=== PATIENT | female | born 1990 | race Caucasian/White ===

== ENCOUNTER 2021-02-04 01:00 | Inpatient (IN) | payer OTHER ==
[2021-02-04] VITALS (17 sets, daily range): BP systolic 101–137; BP diastolic 54–97
[~2021-02-04] VITALS: Ht 157.5 cm; Wt 60.8 kg
[2021-02-04] MEDS ORDERED: NS 1000ML 1,000 ML ONE ×2 (01:27→04:47)
[2021-02-04] MEDS ORDERED: ZOFRAN ONE ×2 (01:27→09:48)
[2021-02-04] MEDS ORDERED: SUBLIMAZE ONE ×2 (01:28→09:49)
[2021-02-04] MEDS ORDERED: SUBLIMAZE IV ONE (01:30)
[2021-02-04] MEDS ORDERED: NS 1000ML 1,000 ML IV ONE (01:30)
[2021-02-04] MEDS ORDERED: ZOFRAN IV PRN ×2 (01:30→11:30)
[2021-02-04 01:34] LABS: BASOPHIL % 0.1 % (0.0-0.2); EOSINOPHIL # 0.2 10^3/uL (0.0-0.2); EOSINOPHIL % 1.7 % (0.0-5.0); LYMPHOCYTES # 3.09 10^3/uL1 (1.0-4.8); LYMPHOCYTES % 25.1 % (24.0-44.0); MEAN CORP HGB 29.5 pg (26-34); MONOCYTES # 0.6 10^3/uL (0.3-0.8); MONOCYTES % 4.5 % (5.0-12.0); NEUTROPHIL # 8.4 10^3/uL (1.8-7.7); NEUTROPHILS % 68.4 % (41.0-85.0); PLATELET COUNT 168 10^3/uL (150-400); RED CELL DISTRIBUTION WIDTH 13.1 % (11.5-14.5)
--- NOTE | 2021-02-04 01:35 | ER.PDOC ---
General Chief Complaint: Requesting Medical Care Stated Complaint: ABD PAIN Time seen by MD: 01:20 Source: patient, family Exam Limitations: no limitations History of Present Illness Initial Comments This 31-year-old female comes to the emergency department complaining of gradual onset of pain pointing to the epigastrium, left upper quadrant, and left lateral rectus area with associated nausea but no vomiting. She denies any constipation or diarrhea. Bowel movements have been normal with no melena or hematochezia. She states that she has had previous peptic ulcer disease but does not take any proton pump inhibitor, antacid, or other medication for ulcer. She does not have any specific food sensitivity or fatty food intolerance. She has never had gallbladder problems. She denies irritable bowel symptoms of chronic diarrhea or constipation. No fever. No true flank pain and no dysuria, urgency or hematuria. She started her menses today using a pad. She denies likelihood of . She has 3 children. Allergies: Coded Allergies: No Known Allergies (Unverified , 11/28/13) Vital Signs First Vital Signs Date Time Temp Pulse Resp B/P (MAP) Pulse Ox O2 Delivery O2 Flow Rate FiO2 02/04/21 01:22 98.2 80 18 02/04/21 01:22 128/97 (107) 100 Room Air Last Vital Signs Date Time Temp Pulse Resp B/P (MAP) Pulse Ox O2 Delivery O2 Flow Rate FiO2 02/04/21 02:08 73 18 111/63 (79) 98 Room Air 02/04/21 01:22 98.2 Past Medical History Medical History: GERD, peptic ulcer disease Surgical History: other (Patient had several lymph nodes excised around her neck but denies lymphoma or other malignancy. She does not know the etiology of the lymphadenopathy.) Family History Significant Family History: no pertinent family hx Social History Smoking: cigarettes, less than 1 pack/day Alcohol Use: none Drug Use: none Constitutional: see HPI; denies chills, denies fever, denies malaise EENTM: no symptoms reported Respiratory: no symptoms reported Cardiovascular: no symptoms reported Gastrointestinal: see HPI Genitourinary: see HPI Musculoskeletal: no symptoms reported Skin: no symptoms reported Psychiatric/Neurological: no symptoms reported Endocrine: no symptoms reported Hematologic/Lymphatic: denies anemia, denies blood clots, denies easy bruising; swollen glands Physical Exam General Appearance: WD/WN, Mild Distress HEENT: PERRL/EOMI, Normal ENT Inspection, TMs Normal, Pharynx Normal Neck: Non-Tender, Full Range of Motion, Supple, Normal Inspection Respiratory: chest non-tender, lungs clear, normal breath sounds, no respiratory distress, no accessory muscle use Cardiovascular: Normal Peripheral Pulses, Regular Rate, Rhythm, No Edema, No JVD, No Murmur Gastrointestinal: Normal Bowel Sounds, No Organomegaly, Other (Patient has tenderness to palpation in all 4 quadrants and the periumbilical area with mild guarding but no rigidity. Bowel sounds are normoactive without high-pitched sounds. No ascites, no distention, no rebound tenderness and no liver or spleen enlargement. Patient has a borderline positive Newman. Flanks are nontender to percussion bilaterally. Abdomen and back were examined for rash and there is none. 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, No Motor/Sensory Deficits, Alert, Normal Mood/Affect, Oriented x 3 Skin: Normal Color, Warm/Dry, Other (No jaundice, no scleral icterus) Lymphatic: No Adenopathy Results/Orders Results/Orders Orders - LUZ DUMAS MD Cbc With Auto Diff (02/04/21 01:23) Comprehensive Metabolic Panel (02/04/21 01:23) Amylase (02/04/21 01:23) Lipase (02/04/21 01:23) Helicobacter Pylori (02/04/21:23) Ct Abd/Pel With Iv Contrast (02/04/21:23) Hcg Qualitative Serum (02/04/21 01:23) Urinalysis (02/04/21 01:23) Saline Lock (02/04/21:23) 0.9 % Sodium Chloride (Ns 1000ml) (02/04/21 01:30) Ondansetron Hcl/Pf (Zofran) (02/04/21 01:30) Fentanyl Citrate/Pf (Sublimaze) (02/04/21 01:30) 0.9 % Sodium Chloride (Ns 1000ml) (02/04/21 01:27) Ondansetron Hcl/Pf (Zofran) (02/04/21 01:27) Fentanyl Citrate/Pf (Sublimaze) (02/04/21 01:28) Urine Culture (02/04/21 01:53) Levofloxacin 750mg/D5w 100ml (Levaquin) (02/04/21 02:38) Blood Culture (02/04/21 02:37) Levofloxacin 750mg/D5w 100ml (Levaquin) (02/04/21 03:00) Metronidazole/Sodium Chloride (Flagyl 50 (02/04/21 03:00) Npo Now (02/04/21 02:45) Admit Orders (02/04/21 02:45) Vital Signs Date Time Temp Pulse Resp B/P (MAP) Pulse Ox O2 Delivery O2 Flow Rate FiO2 02/04/21 02:08 73 18 111/63 (79) 98 Room Air 02/04/21 01:45 75 18 116/54 (74) 97 Room Air 02/04/21 01:22 98.2 80 18 100 02/04/21 01:22 98.2 80 18 128/97 (107) 100 Room Air 02/04/21 01:22 98.2 80 18 Administered Medications Medications (Trade) Dose Ordered Sig/Maryam Route PRN Reason Start Time Stop Time Status Last Admin Dose Admin Fentanyl Citrate (Sublimaze) 50 mcg STAT ONCE IV 02/04/21 01:30 02/04/21 01:31 DC 02/04/21 01:40 50 MCG Levofloxacin/ Dextrose 150 ml @ 100 mls/hr Q24HRS ONCE IV 02/04/21 03:00 02/04/21 04:29 02/04/21 02:53 100 MLS/HR Ondansetron HCl (Zofran) 4 mg STAT PRN IV NAUSEA / VOMITING 02/04/21 01:30 03/06/21 01:29 02/04/21 01:40 4 MG Sodium Chloride 1,000 ml @ 1,200 mls/hr Q50M ONCE IV 02/04/21 01:30 02/04/21 02:19 DC 02/04/21 01:40 1,200 MLS/HR Laboratory Tests Test 02/04/21 01:25 02/04/21 01:53 White Blood Count 12.3 10^3/uL (4.5-11.0) H Red Blood Count 5.08 10^6/uL (4.00-5.20) Hemoglobin 15.0 g/dL (12.0-15.0) Hematocrit 44.3 % (36.0-46.0) Mean Corpuscular Volume 87.2 fL (78-100) Mean Corpuscular Hemoglobin 29.5 pg (26-34) Mean Corpuscular Hemoglobin Concent 33.9 g/dL (33-36.5) Red Cell Distribution Width 13.1 % (11.5-14.5) Platelet Count 168 10^3/uL (150-400) Mean Platelet Volume 10.8 fL (7.8-11.0) Neutrophils (%) (Auto) 68.4 % (41.0-85.0) Lymphocytes (%) (Auto) 25.1 % (24.0-44.0) Monocytes (%) (Auto) 4.5 % (5.0-12.0) L Neutrophils # (Auto) 8.4 10^3/uL (1.8-7.7) H Lymphocytes # (Auto) 3.09 10^3/uL1 (1.0-4.8) Monocytes # (Auto) 0.6 10^3/uL (0.3-0.8) Absolute Immature Granulocyte (auto 0.03 10^3 u/L (0-2) Absolute Eosinophils (auto) 0.2 10^3/uL (0.0-0.2) Immature Granulocytes % 0.20 % (0.00-0.50) Eosinophils % 1.7 % (0.0-5.0) Basophils % 0.1 % (0.0-0.2) Basophils # 0.0 10^3/uL (0.0-0.1) Sodium Level 139 mmol/L (132-145) Potassium Level 3.7 mmol/L (3.6-5.2) Chloride Level 104.0 mmol/L (96-109) Carbon Dioxide Level 24.5 mmol/L (20.0-32) Anion Gap 14.2 Blood Urea Nitrogen 14 mg/dL (7-18) Creatinine 0.67 mg/dL (0.59-1.40) Estimated GFR () 124.2 (>/=60) Est GFR (CKD-EPI)(Non-Afr [place]) 102.7 (>/=60) BUN/Creatinine Ratio 20.0 Glucose Level 96 mg/dL (70-110) Calcium Level 8.6 mg/dL (8.4-10.5) Total Bilirubin 0.3 mg/dL (0.2-1.0) Aspartate Amino Transferase (AST) 11 U/L (0-35) Alanine Aminotransferase (ALT) 16 U/L (12-78) Alkaline Phosphatase 41 U/L (50-136) L Total Protein 6.7 g/dL (6.4-8.2) Albumin 3.4 g/dL (3.4-5.0) Globulin 3.3 Albumin/Globulin Ratio 1.030 Amylase Level 49 U/L (25-115) Lipase 75 U/L (114-286) L Serum HCG, Qualitative NEGATIVE (NEGATIVE) Helicobacter pylori Screen NEGATIVE (NEGATIVE) Urine Collection Type RANDOM Urine Color YELLOW Urine Appearance CLEAR Urine Bilirubin NEGATIVE (NEGATIVE) Urine Ketones NEGATIVE (NEGATIVE) Urine Specific [place] 1.025 (1.005-1.030) Urine pH 6.0 (4.5-8.0) Urine Protein NEGATIVE (NEGATIVE) Urine Urobilinogen 0.2 E.U./dL (0.2) Urine Nitrate NEGATIVE (NEGATIVE) Urine Leukocyte Esterase NEGATIVE (NEGATIVE) Urine Glucose (Auto)(UA) NEGATIVE (NEGATIVE) Urine Blood LARGE (NEGATIVE) H Urine RBC 5-10 RBC/HPF (NONE SEEN) H Urine WBC 2-5 WBC/HPF (0-2) Urine Squamous Epithelial Cells FEW #/HPF (FEW) Urine Bacteria FEW (NONE SEEN) H Progress Progress CBC indicates white count elevated at 12,300. Urinalysis is contaminated with blood from menses. Patient is not and CT scan with contrast confirms acute appendicitis with wall thickening but no periappendiceal fluid or abscess. Patient also has a 2 mm renal calculus on the left without hydronephrosis. Electrolytes and liver functions are normal, renal function normal. ER DEPART Departure Time of Disposition: 02:50 Disposition: 09 ADMITTED INPATIENT Impression: Primary Impression: Acute appendicitis Condition: Improved Referrals: BRYSON GILMAN (PCP) PRIMARY CARE PROVIDER Duration or Time Spent with Pa: 25 minutes Problem Qualifiers Primary Impression: Acute appendicitis Acute appendicitis type: with localized peritonitis Appendicitis gangrene presence: without gangrene Appendicitis perforation presence: without perforation Appendicitis abscess presence: without abscess Qualified Codes: K35.30 - Acute appendicitis with localized peritonitis, without perforation or gangrene LUZ DUMAS MD Feb 04, 2021 01:35
[2021-02-04 01:48] LABS: CALCIUM 8.6 mg/dL (8.4-10.5); CARBON DIOXIDE 24.5 mmol/L (20.0-32)
--- NOTE | 2021-02-04 01:53 | NUR ---
UA: PT TO RESTROOM VIA WHEELCHAIR
--- NOTE | 2021-02-04 01:58 | NUR ---
RADIOLOGY: PT TO RADIOLOGY FOR CT
[2021-02-04 02:07] LABS: BILIRUBIN,URINE NEGATIVE (NEGATIVE); UA COLOR YELLOW; UROBILINOGEN,URINE 0.2 E.U./dL (0.2)
--- NOTE | 2021-02-04 02:25 | DIREP ---
PROCEDURE:CT ABD/PELVIS WITH CONTRAST TECHNIQUE:No oral contrast was given. Following the intravenous administration of contrast material, venous phase cuts were obtained through the abdomen and pelvis. The images were viewed at lung and soft tissue settings. Sagittal and coronal reconstructions are provided. COMPARISON:[facility], CT, CT ABD/PELVIS W/O, 12/23/2017, 09:52 AM. INDICATIONS:Diffuse abdominal pain worst in left lower quadrant, positive Newman sign, FINDINGS: LOWER CHEST:The lung bases are clear. LIVER:Normal. BILIARY:Normal. PANCREAS:Normal. SPLEEN:Normal. URINARY TRACT:A 2 mm calculus is demonstrated in the lower left intrarenal collecting system. No ureteral calculus or hydronephrosis is demonstrated. No bladder calculus is demonstrated. ADRENALS:Normal. AORTA/VASCULAR:Normal. RETROPERITONEUM:Normal. BOWEL/MESENTERY:The appendix is mildly dilated measuring 9 mm. Enhancement of the wall of the appendix is demonstrated as well suggesting acute appendicitis. No periappendiceal abscess is seen. There is no evidence of bowel obstruction. ABDOMINAL WALL:Normal. PELVIS:No abnormal mass is demonstrated. A small amount of free fluid is noted within the posterior cul de sac which may be physiologic. BONES:Normal. OTHER:Normal. CONCLUSION: 1. The findings are consistent with acute appendicitis without evidence of abscess. 2. A single left renal calculus is noted; no hydronephrosis is present. Dictated by: Ernie Johnson M.D. on 02/04/2021 at 02:19 AM
[2021-02-04] MEDS ORDERED: LEVAQUIN 150 ML IV ONE ×2 (02:38→03:00)
[2021-02-04] MEDS ORDERED: FLAGYL 500MG/ 100 ML NS 100 ML IV ONE ×2 (03:00→05:30)
--- NOTE | 2021-02-04 03:44 | NUR ---
TRANSFER TO [facility] ROOM 338. REPORT TO NEGRO RIVERA RN. PT CARE RELINQUISHED.
[2021-02-04] MEDS ORDERED: ATIVAN ONE ×2 (03:51→11:19)
[2021-02-04] MEDS ORDERED: ATIVAN IM PRN (04:00)
--- NOTE | 2021-02-04 05:45 | NUR ---
Initiated 1:1 observation due to patient triggering suicide risk on admission assessment.
--- NOTE | 2021-02-04 06:57 | NUR ---
Report to Martha Grimes RN.
--- NOTE | 2021-02-04 09:06 | NUR ---
STATUS SCD'S APPLIED BEV AND SURGICAL WIPE TO ABDOMEN, SPOUSE AT BEDSIDE TALKING WITH PT
--- NOTE | 2021-02-04 09:45 | NUR ---
OR TO OR VIA BED ACCOMPANIED BY Armando BRAR RN AND Rody ROSSI RN
[2021-02-04] MEDS ORDERED: SODIUM CHLORIDE IRR BOTTLE IR ONE (09:49)
[2021-02-04] MEDS ORDERED: DECADRON ONE (09:49)
[2021-02-04] MEDS ORDERED: DIPRIVAN IV ONE (09:49)
[2021-02-04] MEDS ORDERED: VERSED ONE (09:49)
[2021-02-04] MEDS ORDERED: TORADOL ONE (09:49)
[2021-02-04] MEDS ORDERED: SODIUM CHLORIDE IRR BAG IR ONE (09:49)
[2021-02-04] MEDS ORDERED: SENSORCAINE 0.5% VIAL ONE (09:50)
[2021-02-04] MEDS ORDERED: LIDOCAINE 2% VIAL ONE (09:50)
[2021-02-04] MEDS ORDERED: ANCEF ONE (09:50)
[2021-02-04] MEDS ORDERED: BRIDION IV ONE (09:54)
[2021-02-04] MEDS ORDERED: XYLOCAINE 1%-EPI 1:100,000 ONE (10:28)
[2021-02-04] MEDS ORDERED: SENSORCAINE-MPF 0.25% VIAL ONE (10:28)
--- NOTE | 2021-02-04 11:16 | PRM.OPH ---
Immediate Post Op Note Summary of Operation Date: Feb 04, 2021 Time: 11:08 Pre-Operative DX: Acute appendicitis Post-OP DX: Same Anesth.Used: General endotracheal and local Indications: Patient presented with right lower quadrant pain and nausea. CT scan showed a slightly enlarged appendix with an enhancing wall, indicating acute appendicitis. Physician's Summary: After physical exam was carried out and discussion was carried out with the patient and her and her mother, the procedure itself was discussed with them in detail. They were made aware of the risk, benefits, alternatives and complications associated with the procedure. They opted and consented to proceed with laparoscopic appendectomy, possible open, possible bowel resection, possible ostomy. Patient was brought into the operating room and placed on the operative table in the supine position. Adequate analgesia and anesthesia were obtained, and the patient was intubated without incident.A Whitley catheter was placed under sterile conditions with return of clear yellow urine prior to the balloon being inflated. The abdomen was shaved prepped and draped in the usual sterile fashion.A midline incision was drawn on the patient. A position was chosen in the right upper quadrant inferior to the costal margin, and approximately the midclavicular line.Dislocation was infiltrated with local anesthetic, and a small incision was made with an 11 blade.Utilized using a 5 mm scope and Optiview trocar, the trocar was placed into the abdomen without evidence of injury.CO2 insufflation was used to achieve a pneumoperitoneum. The scope was placed back in the abdomen, and it was examined. I did look at the lower abdomen in the midline near the umbilicus, for placement of the other trochars. In a similar fashion, the position just above the pubis in the midline was infiltrated and a trocar placed without injury. Just below the umbilicus, it was infiltrated, incision was made, and the larger 10 mm trocar was placed. There is no evidence of injury to the abdominal wall or intra-abdominal contents during placement of any of the trochars. Graspers were used to locate the colon in the right side, and the tinea were followed down inferiorly. The appendix was noted to be hanging off the cecum and the tinea. It was lifted without difficulty. It did appear slightly inflamed and thickened.[place] dissector was used to create a window between the mesoappendix and the appendix. BRO stapler,Utilizing a vascular staple line, was used to staple across the base of the appendix at the cecum. A second firing of the stapler was used across the mesoappendix. The appendix was then placed in an Endobag. The area of the right lower quadrant was irrigated and aspirated. Staple line was examined, and seem to be intact without evidence of bleed or leak. All trochars were examined, there is no evidence of injury or bleed. The 5 mm trocar near the pubis was removed. The larger trocar at the umbilicus was removed including the Endobag. The trocar in the right upper quadrant was then removed. Pressure was applied to the abdomen to relieve all pneumoperitoneum. All wounds were irrigated. S retractors in Noe's were used to lift up the fascia at the umbilical incision. 0 Vicryl on a UR 6 was used to close the fascia in a [id number] fashion. All wounds irrigated again. Interrupted 4-0 Monocryl was placed in the deep dermis in a buried interrupted fashion. Dermabond was then applied. When the Dermabond was dry, the abdomen was washed. Local anesthetic was infiltrated into the areas of the incision again. Patient appeared to tolerate the procedure well. All counts were correct at the end of the procedure. Whitley catheter was removed prior to the patient leaving the room. Assistants: Anesthesiologist/ELVIRA Monteiro Specimen(s) Removed: List Specimen: Appendix Estimated Blood Loss: EBL/ESTIMATED BLOOD LOSS: (MIL: 10 Complications: Complications: None Assessment & Plan: Assessment & Plan: Patient will be placed on the floor, and we will restart her usual medications.Diet as tolerated. She will be kept overnight until he can touch base with her providers at [facility], due to her suicidal conversations with the nursing staff.Once they have approved her release, she will be sent home with pain medications and follow-up with Dr. Roach. The patient and her family are aware that I am locum's, and they will be following up with Dr. Roach tomorrow and next week. DONITA REDDY MD Feb 04, 2021 11:16
[2021-02-04] MEDS ORDERED: ATIVAN IV ONE ×2 (11:20→11:30)
[2021-02-04] MEDS ORDERED: PHENERGAN IV PRN (11:30)
[2021-02-04] MEDS ORDERED: MORPHINE SULFATE IV PRN ×2 (11:30)
[2021-02-04] MEDS ORDERED: MORPHINE SULFATE ONE (11:46)
--- NOTE | 2021-02-04 12:25 | NUR ---
RECEIVED RECEIVED FROM PACU, AWAKE AND ALERT, PUNCTURES WOUNDS X3 TO ABDOMEN,CLEAN AND DRY, NO DRAINAGE NOTED, IV INFUSING WITHOUT DIFFICULTY, SCD'S BILATERALLY IN PLACE, CLEAR LIQUIDS LUNCH SERVED, EATING JELLO, TOLERATED, NO N/V NOTED
--- NOTE | 2021-02-04 12:40 | NUR ---
VOID UP TO BATHROOM WITH STAND BY ASSIST, VOIDED WITHOUT DIFFICULTY, BACK TO BED
--- NOTE | 2021-02-04 13:00 | NUR ---
CAMPER ASSEMBLER DELIA NOTIFIED OF PT'S S.I., 1:1 STATUS AND VOICED OF WANTING TO LEAVE AMA. DELIA WILL GET COURT PAPERS FOR PT.
[2021-02-04] MEDS ORDERED: METO-236 PO (13:03)
[2021-02-04] MEDS ORDERED: ALPR0.5T PO (13:03)
[2021-02-04] MEDS: NS 1000ML 1,000 ML IV SCH ×3 (13:21→22:00)
--- NOTE | 2021-02-04 13:29 | NUR ---
TPC TPC NOTIFIED OF EVALUATION AT THIS TIME
--- NOTE | 2021-02-04 13:30 | NUR ---
DR DR SAUCEDO IN O DISCUSS POC WITH PT AND FAMILY PRESENT, QUESTIONS ANSWERED, VOICED UNDERSTANDING
--- NOTE | 2021-02-04 13:39 | NUR ---
AMBULATION AMBULATING IN PLUNKETT, STEADY GAIT NOTED, BACK TO ROOM SITTING UP IN CHAIR
[2021-02-04] MEDS: NORCO 5MG PO PRN ×2 (14:01→20:10)
--- NOTE | 2021-02-04 14:06 | PCM.HP ---
History of Present Illness Reason for Visit: (1) Acute appendicitis ICD Code: K35.80 - Unspecified acute appendicitis SNOMED: 44936388 Hx of Present Illness Ms. Kowalski is a 31-year-old female who presents with acute abdominal pain which upon imaging proved to be consistent with acute appendicitis. The patient was subsequently taken for an uncomplicated laparoscopic appendectomy, which she is tolerated well. The patient voiced suicidal ideation both before and after surgery, though postoperatively she was adamant that she should return home. At the time of my exam, she has tolerated Jell-O and clear liquid diet and denies abdominal pain nausea or vomiting. She and family report that while her previous Effexor was ineffective at preventing panic attacks which are her chief psychiatric symptom, she is open to considering alternative therapies, and reports that as needed benzodiazepines had been helpful in the past. Past Medical History PMH-Psych: (1) Suicidal thoughts Status: Chronic ICD Code: R45.851 - Suicidal ideations SNOMED: 8459515 Hx Last Menstrual Period: current Travel History EBOLA RISK:Travel to/contact w: No Review of Systems Constitutional: Malaise; No: Fever, Chills, Sweats, Weakness Eyes: No: Vision change, Conjunctivae inflammation ENT: No: Ear discharge Respiratory: No: Dry, Shortness of breath, SOB with excertion Cardiovascular: No: Chest Pain, Palpitations, Orthopnea Gastrointestinal: Nausea, Abdominal Pain; No: Vomiting, Diarrhea, Constipation Genitourinary: No Dysuria, No Frequency, No Incontinence Musculoskeletal: No: neck pain, shoulder pain Skin: No: Lesions, Jaundice Neurological: No: Weakness, Numbness, Incoordination Allergies: Coded Allergies: No Known Allergies (Unverified , 11/28/13) Scheduled Alprazolam (Xanax), 1 TAB PO BID, (Reported) Metoprolol Succinate (Metoprolol Succinate), 1 TAB PO DAILY, (Reported) VTE VTE Risk Total Score: 0 VTE Risk Score VTE Risk: Score 0-1 = Low Risk (Aggressive mobilization; early ambulation; no VTE prophylaxis required) Score 2: Moderate Risk (Intermittent/Pneumatic Compression Device OR Lovenox/Heparin/Coumadin) Score 3-4: High Risk (Intermittent/Pneumatic Compression Device AND Lovenox/Heparin/Coumadin) Score > or =5: Highest Risk (Intermittent/Pneumatic Compression Device AND Lovenox/Heparin/Coumadin) Antico:Hep/LMWH/Coum/Xarelto: Yes VTE VTE Present on Admission: No Currently receiving anticoagul: No VTE Risk Total Score: 0 Exam Vital Signs Vital Signs Date Time Temp Pulse Resp B/P (MAP) Pulse Ox O2 Delivery O2 Flow Rate FiO2 02/04/21 12:10 71 16 119/56 (77) 98 Room Air 02/04/21 11:11 97.7 General Appearance: Alert, Oriented X3, Cooperative, No acute distress HEENT: Atraumatic, PERRLA, EOMI Respiratory: Clear to auscultation, Normal air movement Cardiovascular: Regular rate, Normal S1, Normal S2 Abdominal: Normal bowel sounds, Soft, Other (appropriate postop TTP ) Extremities: No clubbing, No cyanosis, No edema, Normal pulses Skin: No lesions, Rash Neuro: Normal gait, Normal speech, Strength at 5/5 X4 ext Psych/Mental Status: Mental status NL, Other (seems to have poor insight into the consequences of SI, acutely mood is euthymic) Assessment/Plan Assessment/Plan Problems: (1) Acute appendicitis Status: Acute Assessment & Plan: s/p appy, awaiting passage of flatus, will ADAT today to reg diet for dinner given tolerance of liquid diet ICD Code: K35.80 - Unspecified acute appendicitis SNOMED: 30206775 (2) Suicidal thoughts Status: Chronic Assessment & Plan: chronic panic attacks, recently c/o SI this admission, states Effexor was ineffective in the past, is amenable to inpatient psych placement, prefers [facility] ICD Code: R45.851 - Suicidal ideations SNOMED: 3818996 Patient History: FHx: SVT (supraventricular tachycardia) Problem Qualifiers (1) Acute appendicitis: Acute appendicitis type: with localized peritonitis Appendicitis gangrene presence: without gangrene Appendicitis perforation presence: without perforation Appendicitis abscess presence: without abscess Qualified Codes: K35.30 - Acute appendicitis with localized peritonitis, without perforation or gangrene MARVIN SAUCEDO MD Feb 04, 2021 14:06
--- NOTE | 2021-02-04 14:25 | NUR ---
[facility] SPOKE WITH HAI MARVIN AT [facility]. THEY WILL DO THE ASSESSMENT ONCE PT IS MEDICALLY CLEARED. HAI STATES TO NOTIFY [facility] HOTLINE WHEN THIS OCCURS. DR. SAUCEDO NOTIFIED.
--- NOTE | 2021-02-04 14:35 | NUR ---
IRWIN RODRIGES WITH SISTER.
[2021-02-04] MEDS: NICOTINE 14MG PATCH TD SCH (15:06)
--- NOTE | 2021-02-04 15:24 | NUR ---
AMBULATION AMBULATING IN PLUNKETT WITH SISTER, STEADY GAIT NOTED,
--- NOTE | 2021-02-04 15:54 | NUR ---
[employer] HEAD START ASSISTANT TEACHER RAMONA NOTIFIED FOR COURT PAPER SIGNATURES
--- NOTE | 2021-02-04 16:06 | NUR ---
[employer] P[employer] COURT DOCUMENTS COMPLETE AND PLACED IN CHART AT THIS TIME
--- NOTE | 2021-02-04 16:47 | NUR ---
supper HUSBANDS BROUGHT PT FOOD, SITTING UP EATING
--- NOTE | 2021-02-04 18:45 | NUR ---
Rec'd pt report. Pt ambulatory in hallway.
--- NOTE | 2021-02-04 18:56 | NUR ---
Pt sitting up in bed talking on smartphone. Awake, alert, oriented, face and eyes are red and puffy as say nurse reports she cried most of the afternoon when her family was at the bedside. Flat affect. Pt is in direct line of sight of this RN. POC was discussed with her and the offgoing RN.
--- NOTE | 2021-02-04 19:30 | NUR ---
VS and assessment completed, see Interventions. Awake, alert, oriented x 3. Skin pink, warm, dry. HRR regular without murmur. Lungs CTA A/P/lat bilat. Abdomen soft with hyperactive bowels sounds in RUQ, hypoactive all other quads. Incisions to RUQ, infraumbilicus, and suprapubic area are well-approximated with dermabond. Edges are pink, non-edematous, no bruising or drainage noted. Pt reports pain rated 7/10. 20 gauge IV to right AC is patent and infusing NS @ 125 cc/hr. SCD's on and functioning bilat. Yellow non-skid socks on. Pulls 1500+ on IS. Education done on proper technique, purpose, splinting, and importance of coughing to keep airway clear. Pt voiced understanding. Wants to keep room lights on because the dark makes her anxious.
--- NOTE | 2021-02-04 20:10 | NUR ---
[place] 5/325 x one tab PO for incisional pain rated 7/10. Observation of oral cavity done to make sure patient swallowed med.
--- NOTE | 2021-02-04 20:15 | NUR ---
Pt wakes and requests anxiety medication. Reminded patient she was sound asleep. She stated she has a tendency of waking up in the middle of the night with panic attacks and wants to prevent it.
--- NOTE | 2021-02-04 20:16 | NUR ---
Pt does not have antianxiety med ordered other than Im ativan from PACU. Pt has home med of xanax 0.5 mg PO BID listed on record, but not ordered or on EMAR. Instructed pt we will call provider.
--- NOTE | 2021-02-04 22:17 | NUR ---
At approx 2130 Dr Dodge was on the unit and this RN informed him pt is requesting something for anxiety and that she normally takes xanax BID. He stated that he will not order anything for anxiety and that he will wait and let psych take care of her meds. This RN went back into pt's room and she was already tearful and tremoring as she had heard what the doctor said. This RN sat with pt for 45 minutes and encouraged her to express feelings and discuss concerns about things that are going on in her life. Pt was tearful at times but spoke openly and freely about her , children, extended family members and her concerns about her grandmother who is dying; and about issues that happened in her past, and what is going on in her life now. Pt thanked nurse for "allowing her to whine" and express her feelings. Reiterated to patient that she is not "whining" and that she can speak freely about her feelings and concerns at any time.
--- NOTE | 2021-02-04 22:57 | NUR ---
Decaf coffee served per pt request. Resting quietly in bed.
--- NOTE | 2021-02-04 23:17 | NUR ---
Pt asks why her right shoulder is hurting. Explained referred pain from phrenic nerve irritation due to laparoscopic surgery. Pt voided understanding.
[2021-02-05] MEDS: NORCO 5MG PO PRN ×2 (04:41→11:19)
--- NOTE | 2021-02-05 04:41 | NUR ---
[place] 5/325 x one tab PO. Mouth check done to make sure patient swallowed pill.
[2021-02-05 04:45] VITALS: BP 105/67
--- NOTE | 2021-02-05 04:45 | NUR ---
Pt sleeping soundly. Wakes easily for VS. See Interventions. Reports incisional pain rated 7/10 and requests pain med. Abdominal incisions are well-approximated with dermabond; no redness, edema, ecchymosis, or drainage. Up to bathroom and voids bloody urine (on menses).
[2021-02-05] MEDS: NS 1000ML 1,000 ML IV SCH (06:09)
--- NOTE | 2021-02-05 06:47 | NUR ---
Report to oncoming shift.
--- NOTE | 2021-02-05 07:12 | NUR ---
DR DR SAUCEDO IN TO DISCUSS POC, PT STATES SHE WANTS TO GO HOME AND ADDRESS HER MENTAL HEALTH ISSUES AFTER HER GRANDMOTHER PASSES AWAY, DR EXPLAINED THAT SHE WOULD GO TO A FACILITY THEN HOME, HE GAVE HER THE OPTION OF PAVILION OR BEHAVIORAL HEALTH UNIT, PT STATES SHE WILL CALL [facility] THIS MORNING TO SEE WHAT THEY SAY, SHE DECIDED TO GO TO THE PAVILION
[2021-02-05 07:30] VITALS: BP 116/70
--- NOTE | 2021-02-05 07:30 | NUR ---
STATUS PT NOW STATES THAT SHE TOOK HER EFFEXOR AND REMERON ROGERS AND ONLY TOOK THE XANAX NEEDED, DISCUSSED THAT YESTERDAY SHE SAID THAT SHE HAD NOT TAKEN HER EFFEXOR OR REMERON IN 2-3 WEEKS BUT TOOK HER XANAX TWICE A DAY, STATES SHE DOES NOT REMEMBER SAYING ANY OF THAT, PT TEARFUL AND CRYING SAYING SHE THINKS OF KILLING HERSELF BUT NEVER WOULD BECAUSE SHE HAS 3 KIDS AT HOME, STATS SHE JUST WANTS TO GO HOME TO SEE HER GRANDMOTHER BEFORE SHE DIES IN [place]
[2021-02-05] MEDS: NICOTINE 14MG PATCH TD SCH (08:25)
--- NOTE | 2021-02-05 08:27 | NUR ---
TEARFUL PT TEARFUL AT THIS TIME. SPOUSE IN ROOM. UNABLE TO REDIRECT.
--- NOTE | 2021-02-05 08:36 | NUR ---
STATUS PT STANDING AT WINDOW, REQUESTING TO GET DRESSED, CHANGED INTO CLOTHES AND TOOK SCD'S OFF, SPOUSE IN ROOM
--- NOTE | 2021-02-05 08:43 | NUR ---
AMBULATING PT AND AMBULATING IN [place], PT TALKING ON PHONE, STATES SHE CALLED [facility] AND WAITING FOR THEM TO CALL HER BACK, REQUESTING TO TALK TO DELIA CROCKETT
[2021-02-05] MEDS ORDERED: PROTONIX IV IV SCH (09:00)
--- NOTE | 2021-02-05 09:42 | NUR ---
STATUS PT SITTING UP IN CHAIR TALKING WITH BEST FRIEND AND , STATES SHE IS VERY ANGRY AND JUST WANTS TO LEAVE, STATES SHE NEVER SAID SHE HAD A PLAN OR THAT SHE WANTED TO KILL HERSELF, STATES SHE ONLY SAID THAT BECAUSE OF THE PAIN MEDS SHE WS ON BYT WAS NOT SERIOUS, STATES SHE WANTS TO JUST GO SHE HER GRANDMA SHAMIKA
--- NOTE | 2021-02-05 09:45 | NUR ---
STATUS REQUESTING TO SHUT DOOR, INFORMED OF LINE OF SITE AND THAT NURSE NEEDS TO BE ABLE TO SEE PT AT ALL TIMES, PT ANGRY AND NOW REQUESTING TO GO OUTSIDE TO SMOKE, INFORMED PT OF WEARING NICOTINE PATCH, WANTS TO OPEN WINDOW AND SMOKE
--- NOTE | 2021-02-05 10:27 | NUR ---
STATUS PT MOMS IN ROOM, BROUGHT PT BREAKFAST, MOM QUESTIONING PT ABOUT WHY SHE IS STILL HERE, PT STATES SHE DOESNT KNOW WHY WE ARE KEEPING HER, STATES SHE JUST NEEDS TO LEAVE TO SEE HER GRANDMA THEN THAT WE WONT LET HER SMOKE AND SHE WOULD BE OK IF SHE COULD JUST GO SMOKE, PT CRYING, SAYING SHE FEELS LIKE SHES NOT A GOOD MOM BECAUSE SHE IS IN THE HOSPITAL INSTEAD OF TAKING CARE OF HER KIDS, STATES SHE DOESNT KNOW WHY SHE IS GOING TO THE PAVILION, SHE DIDNT CHOOSE THAT, MOM STATING THAT WE LISTENED TO THE SISTER SAMMIE ABOUT HER TAKING HER MEDS AND NOT THE PT, THE MOM STATES SHE WAS TAKING HER MEDS, PT NOW STASTES SHE DOESNT MISS TAKING HER MEDS. PT TRYING TO CALL [facility]
--- NOTE | 2021-02-05 11:20 | NUR ---
[facility] PT TALKING ON PHONE TO TPC
--- NOTE | 2021-02-05 11:41 | NUR ---
DR JULIO KIM IN TO SEE PT AND DISCUSS DISCHARGE INFO, QUESTIONS ANSWERED. VOICED UNDERSTANDING
[2021-02-05 12:00] VITALS: BP 114/81
--- NOTE | 2021-02-05 12:46 | NUR ---
TPC: SW VISITED WITH PT'S [facility]PC WORKER LATOYA REGARDING CONCERNS OF PT DISCHARGING HOME SINCE SHE HAD BEEN VOICING SI WITH INTENT AND PLAN. LATOYA STATED "I TALKED TO THE WORKER WHO EVALUATED AND WE BOTH FEEL SHE IS SAFE TO GO HOME. THEY HAVE A SAFETY PLAN IN PLACE AND DID NOT RECOMMENDED INPATIENT TREATMENT AT THIS TIME". KELVIN LET CHARGE NURSE Frances JUAREZ RN, BSN KNOW WHAT PT'S TPC WORKER STATED. PT'S GOAL IS TO RETURN HOME WITH SPOUSE AND FOLLOW UP WITH [facility] OUTPATIENT.
--- NOTE | 2021-02-05 12:51 | NUR ---
TPC TPC CLEARED PT TO GO HOME WITH SAFETY PLAN. COPY OF SAFETY PLAN GIVEN TO PER TPC REQUEST. DR SAUCEDO NOTIFIED. OKAY TO TAKE PT OFF 1:1 WATCH.
--- NOTE | 2021-02-05 12:56 | PRM.DC ---
Discharge Summary Date of Discharge: Feb 05, 2021 Time of Request to Discharge: 13:00 Hospital Course Ms. Kumar is a pleasant 31-year-old female who presented with acute abdominal pain found upon imaging to be secondary to acute appendicitis. She thereafter underwent uncomplicated laparoscopic cholecystectomy with rapid return of appetite and bowel function. The patient's hospital stay was complicated by her voicing suicidal ideation, prompting us to obtain a court order to keep her in anticipation of inpatient psychiatric placement. After speaking with the patient's usual provider for psychiatric services, they negotiated a safety plan, and the patient is thus safe to discharge home. Patient History: FHx: SVT (supraventricular tachycardia) General: Alert, Oriented X3, Cooperative HEENT: Atraumatic, PERRLA, EOMI Neck: Supple, No JVD, No thyromegaly Lungs: Clear to auscultation, Normal air movement Heart: Regular rate, Normal S1, Normal S2 Abdomen: Normal bowel sounds, Soft, No tenderness, Other (incisions CDI) Extremities: No clubbing, No cyanosis, No edema Skin: No breakdown, No significant lesion Neuro: Normal gait, Normal speech, Strength at 5/5 X4 ext Psych/Mental Status: Mental status NL, Mood NL Scheduled Alprazolam (Xanax), 1 TAB PO BID, (Reported) Metoprolol Succinate (Metoprolol Succinate), 1 TAB PO DAILY, (Reported) Sepsis Evaluation @ Discharge 02/05/21 07:30 Course Sepsis Screening Results: Posi: NEGATIVE Sepsis Qualifier/Stage: NO DEFINITE RISK Duration or Total Time Spent w: 25 minutes Vitals & review Data Vital Sign - Last 24 Hours 02/04/21 02/04/21 02/04/21 02/04/21 16:34 19:30 19:30 20:50 Temp 98.2 98.3 Pulse 97 92 Resp 20 18 18 B/P (MAP) 117/77 (90) 112/75 (87) Pulse Ox 100 97 O2 Delivery Room Air Room Air Room Air Room Air 02/04/21 02/05/21 02/05/21 02/05/21 22:30 04:45 07:30 07:54 Temp 98.0 98.1 98.2 Pulse 101 81 130 Resp 18 18 20 B/P (MAP) 118/74 (89) 105/67 (80) 116/70 (85) Pulse Ox 97 95 97 O2 Delivery Room Air Room Air Room Air Room Air 02/05/21 12:00 Temp 98.8 Pulse 98 Resp 20 B/P (MAP) 114/81 (92) Pulse Ox 98 O2 Delivery Room Air Intake and Output 02/05/21 07:00 Intake Total 3668 ml Output Total 2510 ml Balance 1158 ml Laboratory Tests Test 02/04/21 01:25 02/04/21 01:53 White Blood Count 12.3 10^3/uL Red Blood Count 5.08 10^6/uL Hemoglobin 15.0 g/dL Hematocrit 44.3 % Mean Corpuscular Volume 87.2 fL Mean Corpuscular Hemoglobin 29.5 pg Mean Corpuscular Hemoglobin Concent 33.9 g/dL Red Cell Distribution Width 13.1 % Platelet Count 168 10^3/uL Mean Platelet Volume 10.8 fL Neutrophils (%) (Auto) 68.4 % Lymphocytes (%) (Auto) 25.1 % Monocytes (%) (Auto) 4.5 % Neutrophils # (Auto) 8.4 10^3/uL Lymphocytes # (Auto) 3.09 10^3/uL1 Monocytes # (Auto) 0.6 10^3/uL Absolute Immature Granulocyte (auto 0.03 10^3 u/L Absolute Eosinophils (auto) 0.2 10^3/uL Immature Granulocytes % 0.20 % Eosinophils % 1.7 % Basophils % 0.1 % Basophils # 0.0 10^3/uL Sodium Level 139 mmol/L Potassium Level 3.7 mmol/L Chloride Level 104.0 mmol/L Carbon Dioxide Level 24.5 mmol/L Anion Gap 14.2 Blood Urea Nitrogen 14 mg/dL Creatinine 0.67 mg/dL Estimated GFR () 124.2 Est GFR (CKD-EPI)(Non-Afr [place] Islander) 102.7 BUN/Creatinine Ratio 20.0 Glucose Level 96 mg/dL Calcium Level 8.6 mg/dL Total Bilirubin 0.3 mg/dL Aspartate Amino Transf (AST/SGOT) 11 U/L Alanine Aminotransferase (ALT/SGPT) 16 U/L Alkaline Phosphatase 41 U/L Total Protein 6.7 g/dL Albumin 3.4 g/dL Globulin 3.3 Albumin/Globulin Ratio 1.030 Amylase Level 49 U/L Lipase 75 U/L Serum HCG, Qualitative NEGATIVE Helicobacter pylori Screen NEGATIVE Urine Collection Type RANDOM Urine Color YELLOW Urine Appearance CLEAR Urine Bilirubin NEGATIVE Urine Ketones NEGATIVE Urine Specific [place] 1.025 Urine pH 6.0 Urine Protein NEGATIVE Urine Urobilinogen 0.2 E.U./dL Urine Nitrate NEGATIVE Urine Leukocyte Esterase NEGATIVE Urine Glucose (Auto)(UA) NEGATIVE Urine Blood LARGE Urine RBC 5-10 RBC/HPF Urine WBC 2-5 WBC/HPF Urine Squamous Epithelial Cells FEW #/HPF Urine Bacteria FEW Current Medications Medications (Trade) Dose Ordered Sig/Maryam PRN Reason Start Time Stop Time Status Last Admin Acetaminophen/ Hydrocodone Bitart ([place] 5mg) 1 ea Q4H PRN PAIN 4 - 6 02/04/21 11:30 03/06/21 11:29 02/05/21 11:19 Lorazepam (Ativan) 0.5 mg Q4HR PRN ANXIETY 02/04/21 04:00 02/06/21 03:00 Nicotine (Nicotine 14mg Patch) 1 each DAILY 02/04/21 14:15 03/06/21 14:14 02/05/21 08:25 Ondansetron HCl (Zofran) 4 mg Q4H PRN NAUSEA 02/04/21 11:30 02/06/21 12:00 Ondansetron HCl (Zofran) 4 mg STAT PRN NAUSEA / VOMITING 02/04/21 01:30 03/06/21 01:29 02/04/21 01:40 Pantoprazole Sodium (Protonix Iv) 40 mg DAILY 02/05/21 09:00 03/07/21 08:59 02/05/21 08:25 Promethazine HCl (Phenergan) 12.5 mg Q4H PRN NAUSEA 02/04/21 11:30 03/06/21 11:29 Sodium Chloride 1,000 ml @ 125 mls/hr Q8H 02/04/21 11:30 03/06/21 11:29 02/05/21 06:09 Sepsis Infection Criteria Pres: None LEVEL 1 SEPSIS INFECTION CRITE: ABX Therapy, Recent Invasive Procedure LEVEL 2-SIRS (LIST ALL THAT AP: [id number] Cardiovascular Evidence: Not Assessed or None Hematologic Evidence: None/Not assessed Hepatic Evidence: None/Not assessed Metabolic Evidence: None/Not assessed Neurological Evidence: None/Not assessed Respiratory Evidence: None/Not assessed Renal Evidence: None/Not assessed O2 Sat by Pulse Oximetry: 98 Plan Problems: (1) Suicidal thoughts Status: Chronic ICD Code: R45.851 - Suicidal ideations SNOMED: [id number] Assessment & Plan: safety plan arranged with [facility] provider MARVIN SAUCEDO MD Feb 05, 2021 12:56
--- NOTE | 2021-02-05 13:10 | NUR ---
discharge DISCHARGE INSTRUCTIONS GIVEN AND QUESTIONS ANSWERED VOICED UNDERSTANDING, SAFETY PLAN GIVEN TO PT
[2021-02-05 13:18] VITALS: BP 114/81
--- NOTE | 2021-02-05 13:30 | NUR ---
DISCHARGE DISCHARGED TO HOME VIA W/C TO PRIVATE VEHICLE IN APPARENT STABLE CONDITION
== END 2021-02-05 13:26 | disposition home or self-care (01) | DRG 342 ==
LOC: ER 01:00 → OBSVTOIN 02:45 → MS 02:45
PROVIDERS: ADMIT Surgery; ATTEND Surgery
PROC: 0DTJ4ZZ Resection of Appendix, Percutaneous Endoscopic Approach (ICD-10-PCS; principal; 2021-02-04 09:30)
DX: K35.30 Acute appendicitis with localized peritonitis, without perforation or gangrene (principal); R45.851 Suicidal ideations; B35.9 Dermatophytosis, unspecified; K21.9 Gastro-esophageal reflux disease without esophagitis; F17.210 Nicotine dependence, cigarettes, uncomplicated; R59.1 Generalized enlarged lymph nodes; Z87.11 Personal history of peptic ulcer disease
CPT/HCPCS: 36415; 74177; 80053; 81000; 81003; 82150; 83690; 84703; 85025; 86677; 87040; 87086; 99285; A4217; C9113; G0378; J0690; J1100; J1885; J1956; J2001; J2060; J2250; J2405; J3010; J3490; J7030; Q9965; 88302

== ENCOUNTER 2021-09-10 21:54 | Emergency (ER) | payer OTHER ==
[~2021-09-10] VITALS: Ht 157.5 cm; Wt 59.0 kg
[~2021-09-10 21:54] MED LIST: ALPR0.5T PO; METO-236 PO
[2021-09-11] MEDS ORDERED: DUO 0.5-3(2.5) MG/3 ML IH STA (04:21)
[2021-09-11] MEDS ORDERED: DUO 0.5-3(2.5) MG/3 ML IH ONE (04:43)
[2021-09-11] MEDS ORDERED: ANTIVERT PO STA (04:43)
[2021-09-11 05:02] LABS: BASOPHIL % 0.3 % (0.0-0.2); EOSINOPHIL # 0.2 10^3/uL (0.0-0.2); EOSINOPHIL % 3.1 % (0.0-5.0); LYMPHOCYTES # 3.29 10^3/uL1 (1.0-4.8); LYMPHOCYTES % 42.6 % (24.0-44.0); MEAN CORP HGB 29.8 pg (26-34); MONOCYTES # 0.5 10^3/uL (0.3-0.8); MONOCYTES % 6.2 % (5.0-12.0); NEUTROPHIL # 3.7 10^3/uL (1.8-7.7); NEUTROPHILS % 47.7 % (41.0-85.0); PLATELET COUNT 194 10^3/uL (150-400); RED CELL DISTRIBUTION WIDTH 13.2 % (11.5-14.5)
[2021-09-11] MEDS ORDERED: ANTIVERT ONE (05:25)
[2021-09-11 05:27] LABS: ALANINE AMINOTRANSFERASE(ML) 14 U/L (12-78); ALKALINE PHOSPHATASE 47 U/L (50-136); ASPARTATE AMINO TRANSFERASE 11 U/L (0-35); CALCIUM 8.7 mg/dL (8.4-10.5); GLUCOSE 97 mg/dL (70-110)
--- NOTE | 2021-09-11 05:52 | DIREP ---
PROCEDURE:CHEST 1 VIEW COMPARISON:None. INDICATIONS:dizziness FINDINGS: LUNGS/PLEURA:No significant pulmonary parenchymal abnormalities. No effusions. VASCULATURE:Normal. Unremarkable pulmonary vasculature. CARDIAC:Normal. No cardiac silhouette abnormality or cardiomegaly. MEDIASTINUM:Normal. No visible mass or adenopathy. BONES:Normal. No fracture or visible bony lesion. OTHER:Negative. CONCLUSION:Normal examination. Dictated by: Abisai Aquino M.D. on 09/11/2021 at 05:50 AM
--- NOTE | 2021-09-11 06:03 | PCM.EKG ---
[facility] Test Date: 2021-09-11 Test Time: 05:59:49 Pat Name: AZALEA OSWALD Department: Room: Gender: F Sex Worker Or Escort: liza : 1990 Requested By: NIKKI AVALOS Order Number: [id number] Reading MD: Measurements Intervals [place] Rate: 65 P: 79 MO: 116 QRS: 77 QRSD: 97 T: 61 QT: 412 QTc: 429 Interpretive Statements Incomplete analysis due to missing data in precordial lead(s) Sinus rhythm Borderline short MO interval Missing lead(s): V6 Compared to ECG 11/25/2018 13:14:16 Sinus tachycardia no longer present ST (T wave) deviation no longer present Please click the below link to view image of tracing.
[2021-09-11 06:40] VITALS: BP 123/60
[2021-09-11 07:09] LABS: BILIRUBIN,URINE NEGATIVE (NEGATIVE); UROBILINOGEN,URINE 0.2 E.U./dL (0.2)
--- NOTE | 2021-09-11 07:13 | ER.PDOC ---
General Chief Complaint: Dizziness Stated Complaint: DIZZINESS Time seen by MD: 05:12 Source: patient Exam Limitations: no limitations History of Present Illness Initial Comments Dizziness for 3 days, no chest pain or shortness of breath. Severity: moderate Usually: walks w/o assistance Worsened By: nothing Allergies: Coded Allergies: No Known Allergies (Unverified , 11/28/13) Home Meds Reported Medications Alprazolam (XANAX) 0.5 Mg Tablet, 1 TAB PO BID, #60 TAB 02/04/21 Metoprolol Succinate (METOPROLOL SUCCINATE) 25 Mg Tab.er.24h, 1 TAB PO DAILY, #30 TAB 5 Refills 02/04/21 Past Medical History Medical History: GERD, peptic ulcer disease Surgical History: appendectomy, other Family History Significant Family History: no pertinent family hx Social History Smoking: non-smoker Alcohol Use: none Drug Use: none Review of Systems Ears: dizziness Nose: no symptoms reported Mouth: no symptoms reported Respiratory: no symptoms reported Cardiovascular: no symptoms reported Gastrointestinal: no symptoms reported All Other Systems: Reviewed and Negative Physical Exam General Appearance: alert, no distress EENT: nml eye inspection, PERRL, no nystagmus, nml ENT inspection, pharynx nml, TM's nml Neck: supple Respiratory: no resp distress, breath sounds nml CVS: reg rate & rhythm, heart sounds.nml Abdomen: non-tender, no organomegaly, no distention Skin: color nml, no rash, warm/dry Extremities: non-tender, nml ROM, no pedal edema Neuro/Psych: nml orientation, nml speech/cognition, nml mood/affect Cranial Nerves: nml as tested, no evidence of acute CVA Cerebellar: nml as tested Sensorimotor: nml motor, nml sensation Results/Orders Results/Orders Vital Signs Date Time Temp Pulse Resp B/P (MAP) Pulse Ox O2 Delivery O2 Flow Rate FiO2 09/11/21 07:25 97.7 70 18 127/62 (83) 100 Room Air 09/11/21 06:40 97.8 91 18 123/60 (81) 99 09/11/21 04:55 97.8 96 18 99 09/11/21 04:55 97.8 96 18 09/11/21 04:45 89 16 97 09/11/21 04:45 79 16 100 09/11/21 04:44 97.8 96 18 99 Administered Medications Medications (Trade) Dose Ordered Sig/Maryam Route PRN Reason Start Time Stop Time Status Last Admin Dose Admin Albuterol/ Ipratropium (Duo 0.5-3(2.5) Mg/3 ml) 3 ml STAT STAT IH 09/11/21 04:21 09/11/21 04:22 DC 09/11/21 04:45 3 ML Meclizine HCl (Antivert) 25 mg STAT STAT PO 09/11/21 04:43 09/11/21 04:44 DC 09/11/21 05:30 25 MG Laboratory Tests Test 09/11/21 04:37 09/11/21 06:50 White Blood Count 7.7 10^3/uL (4.5-11.0) Red Blood Count 5.10 10^6/uL (4.00-5.20) Hemoglobin 15.2 g/dL (12.0-15.0) H Hematocrit 47.0 % (36.0-46.0) H Mean Corpuscular Volume 92.2 fL (78-100) Mean Corpuscular Hemoglobin 29.8 pg (26-34) Mean Corpuscular Hemoglobin Concent 32.3 g/dL (33-36.5) L Red Cell Distribution Width 13.2 % (11.5-14.5) Platelet Count 194 10^3/uL (150-400) Mean Platelet Volume 10.5 fL (7.8-11.0) Neutrophils (%) (Auto) 47.7 % (41.0-85.0) Lymphocytes (%) (Auto) 42.6 % (24.0-44.0) Monocytes (%) (Auto) 6.2 % (5.0-12.0) Neutrophils # (Auto) 3.7 10^3/uL (1.8-7.7) Lymphocytes # (Auto) 3.29 10^3/uL1 (1.0-4.8) Monocytes # (Auto) 0.5 10^3/uL (0.3-0.8) Absolute Immature Granulocyte (auto 0.01 10^3 u/L (0-2) Absolute Eosinophils (auto) 0.2 10^3/uL (0.0-0.2) Immature Granulocytes % 0.10 % (0.00-0.50) Eosinophils % 3.1 % (0.0-5.0) Basophils % 0.3 % (0.0-0.2) H Basophils # 0.0 10^3/uL (0.0-0.1) Sodium Level 140 mmol/L (132-145) Potassium Level 3.8 mmol/L (3.6-5.2) Chloride Level 106.0 mmol/L (96-109) Carbon Dioxide Level 25.0 mmol/L (20.0-32) Anion Gap 12.8 Blood Urea Nitrogen 15 mg/dL (7-18) Creatinine 0.66 mg/dL (0.59-1.40) Estimated GFR () 126.4 (>/=60) Est GFR (CKD-EPI)(Non-Afr [place]) 104.5 (>/=60) BUN/Creatinine Ratio 22.0 Glucose Level 97 mg/dL (70-110) Calcium Level 8.7 mg/dL (8.4-10.5) Total Bilirubin 0.2 mg/dL (0.2-1.0) Aspartate Amino Transferase (AST) 11 U/L (0-35) Alanine Aminotransferase (ALT) 14 U/L (12-78) Alkaline Phosphatase 47 U/L (50-136) L Troponin I High Sensitivity < 4 ng/L (0-50) Total Protein 6.7 g/dL (6.4-8.2) Albumin 3.3 g/dL (3.4-5.0) L Globulin 3.4 Albumin/Globulin Ratio 0.970 Urine Collection Type UNKNOWN Urine Color DARK KI Urine Appearance HAZY Urine Bilirubin NEGATIVE (NEGATIVE) Urine Ketones NEGATIVE (NEGATIVE) Urine Specific [place] 1.025 (1.005-1.030) Urine pH 5.5 (4.5-8.0) Urine Protein 2+ (NEGATIVE) H Urine Urobilinogen 0.2 E.U./dL (0.2) Urine Nitrate NEGATIVE (NEGATIVE) Urine Leukocyte Esterase 1+ (NEGATIVE) H Urine Glucose (Auto)(UA) NEGATIVE (NEGATIVE) Urine Blood 3+ (NEGATIVE) H Urine RBC TooNumerousToCount RBC/HPF (NONE Urine WBC 5-10 WBC/HPF (0-2) H Urine Squamous Epithelial Cells FEW (<=FEW) Urine Bacteria FEW (NONE SEEN) H Urine HCG, Qualitative NEGATIVE (NEGATIVE) Progress Progress 31-year-old female presenting with dizziness, neurologically intact, wheezing on exam so given a DuoNeb, and monitoring. Patient pending labs. Handoff to Dr. Sinclair CBC, chemistry and cardiac enzymes are unremarkable. Urine is consistent with UTI. Patient refused CT head. She signed and left AGAINST MEDICAL ADVICE. She understands that leaving AGAINST MEDICAL ADVICE may result in worsening condition and . I told her to return to ED at any time if she gets worse. She voice understanding. Patient went home on Bactrim DS for UTI. ER DEPART Departure Time of Disposition: 07:45 Disposition: 07 LEFT AGAINST MEDICAL ADVICE Impression: Primary Impression: Dizziness and giddiness Additional Impression: UTI (urinary tract infection) Condition: Against Medical Advice Referrals: RBYSON GILMAN (PCP) PRIMARY CARE PROVIDER Duration or Time Spent with Pa: 45 min Problem Qualifiers Additional Impression: UTI (urinary tract infection) Urinary tract infection type: site unspecified Hematuria presence: with hematuria Qualified Codes: N39.0 - Urinary tract infection, site not specified; R31.9 - Hematuria, unspecified NIKKI AVALOS DO Sep 11, 2021 07:13 MAVERICK BOLAÑOS MD Sep 11, 2021 07:46
[2021-09-11 07:25] VITALS: BP 127/62
== END 2021-09-11 07:49 | disposition left against medical advice (07) ==
LOC: ER 21:54
DX: N39.0 Urinary tract infection, site not specified (principal); R42 Dizziness and giddiness
CPT/HCPCS: 36415; 71045; 80053; 81001; 81025; 84484; 85025; 87086; 93005; 94640; 99285; J8597

== ENCOUNTER 2022-01-29 07:01 | Emergency (ER) | payer OTHER ==
[~2022-01-29] VITALS: Ht 157.5 cm; Wt 70.8 kg
--- NOTE | 2022-01-29 07:10 | NUR ---
ARRIVAL PRESENTED TO ED RM#6 AMBULATORY WITH SISTER AT SIDE, C/O UPPER BACK PAIN THAT RADIATES DOWN TO RIGHT UPPER ABD THAT STARTED FRIDAY NIGHT WITHOUT KNOWN INJURY. RATES 05/22. HAS TRIED MUSCLE RELAXER AND IBUPROFEN LAST DOSE 01/28/22 AT 1900. "EVERYTHING MAKES IT WORSE BUT NOTHING MAKES IT BETTER," PER PT. VS OBTAINED. DR. BOLAÑOS NOTIFIED OF PATIENT ARRIVAL.
[2022-01-29 07:22] VITALS: BP 132/95
[2022-01-29] MEDS ORDERED: NORCO 5MG PO ONE (07:34)
[2022-01-29] MEDS ORDERED: NORCO 5MG PO STA (07:34)
--- NOTE | 2022-01-29 07:38 | ER.PDOC ---
General Chief Complaint: Back Pain/Injury Stated Complaint: BACK PAIN Time seen by MD: 07:35 Source: patient Exam Limitations: no limitations History of Present Illness Initial Comments Mid and low back pain after lifting, twisting and bending while working at home 2 days ago. Pain is worse with movement. Ibuprofen does not seem to be helping a lot. No fall. No radiation to lower extremities. No numbness or tingling in lower extremities. No urinary or bladder incontinence. Severity/Quality: moderate Method of Injury: bending, lifting, twisted Associated Symptoms: muscle spasms, lower back pain Allergies: Coded Allergies: ketorolac (Verified Allergy, Intermediate, Shortness of Breath, 01/29/22) PER PATIENT. Home Meds Reported Medications Alprazolam (XANAX) 0.5 Mg Tablet, 1 TAB PO BID, #60 TAB 02/04/21 Metoprolol Succinate (METOPROLOL SUCCINATE) 25 Mg Tab.er.24h, 1 TAB PO DAILY, #30 TAB 5 Refills 02/04/21 Past Medical History Medical History: arrhythmia, cardiac problems, GERD, peptic ulcer disease, other Surgical History: appendectomy, other Family History Significant Family History: no pertinent family hx Social History Smoking: non-smoker Alcohol Use: none Drug Use: none Review of Systems Constitutional: no symptoms reported EENTM: no symptoms reported Respiratory: no symptoms reported Cardiovascular: no symptoms reported Gastrointestinal: no symptoms reported Musculoskeletal: see HPI All Other Systems: Reviewed and Negative Physical Exam General Appearance: No Apparent Distress, WD/WN HEENT: PERRL/EOMI, Normal ENT Inspection, TMs Normal, Pharynx Normal Neck: Non-Tender, Normal Alignment Cardiovascular/Respiratory: Regular Rate, Rhythm, No M/R/G, Normal Peripheral Pulses, No JVD, Normal Breath Sounds, No Respiratory Distress Gastrointestinal: Normal Bowel Sounds, No Organomegaly, No Pulsatile Mass, Non Tender, Soft Back: Muscle Spasm, Other (Tenderness paraspinous muscles of the T and L-spine as) Extremities: No Evidence of Injury, Normal Range of Motion, Non-Tender, No Pedal Edema, Pelvis Stable Neuro/Psych: Alert, safety equipment testing specialist nml/symmetrical, mood/effect nml, No Motor/Sensory Deficits, Relexes nml Skin: Normal Color, Warm/Dry Results/Orders Results/Orders Orders - MAVERICK BOLAÑOS MD Hydrocodone/Acetaminophen ([place] 5mg) (01/29/22 07:34) Vital Signs Date Time Temp Pulse Resp B/P (MAP) Pulse Ox O2 Delivery O2 Flow Rate FiO2 01/29/22 07:22 98.3 98 17 132/95 (107) 98 Room Air 01/29/22 07:22 98.3 98 17 01/29/22 07:22 98.3 98 17 98 Progress Progress Patient received [place] 5/325 with improvement in pain. ER DEPART Departure Time of Disposition: 07:37 Disposition: 01 HOME / SELF CARE / HOMELESS Impression: Primary Impression: Thoracic back sprain Additional Impression: Lumbar sprain Condition: Improved Referrals: BRYSON GILMAN (PCP) PRIMARY CARE PROVIDER Additional Instructions: Tramadol Flexeril Ibuprofen Follow-up with your PCP in 3 to 5 days Return to ED if worsening or concerns Duration or Time Spent with Pa: 10 min Problem Qualifiers Primary Impression: Thoracic back sprain Encounter type: initial encounter Qualified Codes: S23.9XXA - Sprain of unspecified parts of thorax, initial encounter Additional Impression: Lumbar sprain Encounter type: initial encounter Qualified Codes: S33.5XXA - Sprain of ligaments of lumbar spine, initial encounter MAVERICK BOLAÑOS MD Jan 29, 2022 07:38
[2022-01-29 07:40] VITALS: BP 127/77
== END 2022-01-29 07:45 | disposition home or self-care (01) ==
LOC: ER 07:01
DX: S23.3XXA Sprain of ligaments of thoracic spine, initial encounter (principal); S33.5XXA Sprain of ligaments of lumbar spine, initial encounter; I51.9 Heart disease, unspecified; X50.1XXA Overexertion from prolonged static or awkward postures, initial encounter; Y93.89 Activity, other specified; Y92.009 Unspecified place in unspecified non-institutional (private) residence as the place of occurrence of the external cause; Y99.8 Other external cause status; Z87.11 Personal history of peptic ulcer disease; Z87.19 Personal history of other diseases of the digestive system; Z98.890 Other specified postprocedural states
CPT/HCPCS: 99283